=== PATIENT | male | born 1995 | race Caucasian/White ===

== ENCOUNTER 2024-08-04 07:37 | Inpatient (IN) | payer OTHER ==
[~2024-08-04] VITALS: Ht 167.6 cm; Wt 59.0 kg
[2024-08-04 08:33] LABS: BASOPHILS % (AUTO) 0.7 % (0.0-2.0); EOSINOPHILS % (AUTO) 3.8 % (1.0-6.0); HEMATOCRIT 39.2 % (41-53); HEMOGLOBIN 13.3 g/dL (13.5-17.5); LYMPHOCYTES # (AUTO) 2.6 K/uL (1.0-4.8); LYMPHOCYTES % (AUTO) 49.5 % (22.0-44.0); MEAN CORPUSCULAR HEMOGLOBIN 31.4 pg (26.0-34.0); MEAN CORPUSCULAR HGB CONC 33.8 G/dL (31.0-37.0); MEAN CORPUSCULAR VOLUME 93 fL (80-100); MONOCYTES # (AUTO) 0.3 K/uL (0.1-1.0); MONOCYTES % (AUTO) 6.6 % (2.0-9.0); NEUTROPHILS # (AUTO) 2.1 K/uL (1.8-7.7); NEUTROPHILS % (AUTO) 39.4 % (40.0-70.0); PLATELET COUNT (AUTO) 240 K/uL (150-450); RED BLOOD CELL COUNT(AUTO) 4.23 MIL/uL (4.50-5.90); RED CELL DISTRIBUTION WIDTH 13.3 % (11.5-14.5); WHITE BLOOD COUNT (AUTO) 5.3 K/uL (4.5-11.0)
[2024-08-04 08:38] LABS: ANION GAP 7 mmol/L (8-16); CALCIUM, TOTAL 8.4 mg/dL (8.8-10.5); CARBON DIOXIDE 30 mmol/L (22-29); CHLORIDE 107 mmol/L (98-107); CREATININE 0.83 mg/dL (0.60-1.30); GLOMERULAR FILTR. RATE CALC > 60 mL/min (>60); GLUCOSE,RANDOM 89 mg/dL (70-110); POTASSIUM 3.9 mmol/L (3.5-5.1); SODIUM SERUM 144 mmol/L (136-145); UREA NITROGEN, BLOOD 13 mg/dL (7-18)
[2024-08-04 08:44] LABS: ALANINE AMINOTRANSFERASE 14 U/L (12-78); ALBUMIN 3.7 g/dL (3.4-5.0); ALKALINE PHOSPHATASE 72 U/L (46-116); ASPARTATE AMINOTRANSFERASE 11 U/L (15-37); BILIRUBIN,TOTAL 0.6 mg/dL (0.1-1.0); LIPASE 61 U/L (16-77); TOTAL PROTEIN, SERUM 6.9 g/dL (6.4-8.2)
[2024-08-04 08:46] LABS: ALCOHOL, BLOOD (SERUM) < 3 mg/dL (0-10)
[2024-08-04] MEDS ORDERED: ONDANSETRON HCL 4 MG/2 ML VIAL IVP PRN (10:00)
[2024-08-04] MEDS ORDERED: MAGNESIUM HYDROXIDE SUSPENSION 30 ML UDCUP PO PRN (10:00)
[2024-08-04] MEDS: BUPRENORPHINE HCL/NALOXONE HCL 2-0.5 MG SUBLINGUAL TABLET SL SCH (11:07)
[2024-08-04 17:25] VITALS: BP 134/74; PULSE 63; RESP 19; TEMP 98.3; O2SAT 99
[2024-08-04 20:00] VITALS: BP_SYST 124; BP_SYST 126; BP_DIAS 75; PULSE 62; PULSE 69; RESP 16; RESP 18; TEMP 98.3; O2SAT 100; O2SAT 98
[2024-08-04] MEDS: FAMOTIDINE 20 MG TABLET PO SCH (21:00)
[2024-08-05] VITALS: BP 126/75; PULSE 69; RESP 16; TEMP 98.3; O2SAT 98
[2024-08-05 04:00] VITALS: BP 127/73; PULSE 57; RESP 14; TEMP 98.1; O2SAT 99
[2024-08-05 07:51] VITALS: BP 117/79; PULSE 51; RESP 17; TEMP 98.2; O2SAT 98
[2024-08-05] MEDS: MULTIVITAMINS WITH MINERALS, THERAPEUTIC TABLET PO SCH (08:35)
[2024-08-05] MEDS: ACETAMINOPHEN 325 MG TABLET PO PRN (08:38)
[2024-08-05 11:45] VITALS: BP 129/67; PULSE 74; RESP 18; TEMP 97.9; O2SAT 98
[2024-08-05 15:58] VITALS: BP 117/68; PULSE 67; RESP 18; TEMP 98.3; O2SAT 98
[2024-08-05 20:00] VITALS: BP 135/82; PULSE 83; RESP 14; TEMP 98; O2SAT 98
[2024-08-05] MEDS: BUPRENORPHINE HCL/NALOXONE HCL 2-0.5 MG SUBLINGUAL TABLET SL SCH (20:15)
[2024-08-05] MEDS: ZOLPIDEM TARTRATE 5 MG TABLET PO PRN (21:35)
[2024-08-06] VITALS: BP 123/74; PULSE 64; RESP 13; TEMP 98.4; O2SAT 97
[2024-08-06 05:26] VITALS: BP 113/63; PULSE 55; RESP 17; TEMP 97.8; O2SAT 98
[2024-08-06 07:36] VITALS: BP 110/58; PULSE 69; RESP 18; TEMP 97.8; O2SAT 99
[2024-08-06 11:12] VITALS: BP 115/63; PULSE 80; RESP 16; TEMP 98.2; O2SAT 98
[2024-08-06] MEDS ORDERED: ACET-784 PO (14:02)
[2024-08-06] MEDS ORDERED: MAGN-169 PO (14:02)
[2024-08-06] MEDS ORDERED: BUPR1TAB33 SL (14:06)
[2024-08-06 15:29] VITALS: BP 116/69; PULSE 75; RESP 18; TEMP 98; O2SAT 98
== END 2024-08-06 17:30 | DRG 897 ==
LOC: EMS 07:45 → EDH 10:31 → 5S 17:01
PROVIDERS: ADMIT Internal Medicine; ATTEND Internal Medicine
DX: F11.13 Opioid abuse with withdrawal (principal); G95.89 Other specified diseases of spinal cord; F17.200 Nicotine dependence, unspecified, uncomplicated; Z71.6 Tobacco abuse counseling; Z91.148 Patient's other noncompliance with medication regimen for other reason
CPT/HCPCS: 72040; 80048; 80076; 83690; 85025; 99285; G0480

== ENCOUNTER 2024-09-03 00:55 | Emergency (ER) | payer OTHER ==
[~2024-09-03] VITALS: Ht 165.1 cm; Wt 59.1 kg
[~2024-09-03 00:55] MED LIST: ACET-784 PO; BUPR1TAB33 SL; MAGN-169 PO
[2024-09-03 02:05] VITALS: BP 149/89; PULSE 79; RESP 15; TEMP 98.8; O2SAT 98
[2024-09-03] MEDS: METHOCARBAMOL 500 MG TABLET PO ONE (04:21)
[2024-09-03] MEDS: ACETAMINOPHEN 500 MG TABLET PO ONE (04:21)
[2024-09-03] MEDS: KETOROLAC TROMETHAMINE 60 MG/2 ML VIAL IM ONE (04:21)
[2024-09-03] MEDS: TraMADol HCL 50 MG TABLET PO ONE (04:21)
== END 2024-09-03 06:22 ==
LOC: EMS 01:00
DX: S60.211A Contusion of right wrist, initial encounter (principal); S20.229A Contusion of unspecified back wall of thorax, initial encounter; W18.2XXA Fall in (into) shower or empty bathtub, initial encounter; Y93.E1 Activity, personal bathing and showering; Y92.89 Other specified places as the place of occurrence of the external cause; Y99.8 Other external cause status
CPT/HCPCS: 99284; 72070; 72100; 73110; 96372; J1885; 99285